=== PATIENT | female | born 1940 | race Two or more races ===

== ENCOUNTER 2025-06-19 05:00 | Inpatient (IN) | payer OTHER ==
[2025-06-18 08:53] LABS: BASO % 0.8 % (0.1-1.2); EOS # 0.12 (0.04-0.54); EOS % 1.1 % (0.7-7.0); LYMPH # 2.27 (1.18-3.74); LYMPH % 20.6 % (19.3-53.1); MEAN PLATELET VOLUME 10.10 fl (9.4-12.4); MONO # 0.67 (0.24-0.82); MONO % 6.1 % (4.7-12.5); NEUT # 7.84 (1.56-6.13); NEUT % 71.0 % (34.0-71.1); RED CELL DISTRIBUTION WIDTH 18.0 % (11.6-14.4)
[2025-06-18 08:59] LABS: URINE APPEARANCE Clear; URINE BILIRRUBIN Negative (NEGATIVE); URINE BLOOD Negative; URINE COLOR Yellow; URINE GLUCOSE Negative (NEGATIVE); URINE KETONE Trace (NEGATIVE); URINE LEUKOCYTE Large; URINE NITRATE Negative; URINE PROTEIN Negative (NEGATIVE); URINE UROBILINOGEN 0.2 E.U./dl
[2025-06-18 09:00] LABS: URINE BACTERIA 2015.9 uL (0.0-1933); URINE EPITHELIAL CELLS 24.2 uL (0.0-38.8); URINE RBC 40.3 uL (0.0-20.8); URINE WBC 24.6 uL (0.0-23.2)
[2025-06-18 09:10] LABS: COVID-19 AG NEGATIVE (NEGATIVE)
[2025-06-18 09:15] LABS: URINE CAST 1.02 uL (0.0-1.40)
[2025-06-18 09:18] LABS: INR 1.07
[2025-06-18 09:20] LABS: ALT/SGPT 20.0 U/L (12-78); AST/SGOT 21.0 U/L (15-37); BILIRUBIN TOTAL 0.39 mg/dL (0.3-1.2); BUN CREA RATIO 21.0 (7.0-25.0); CREATININE SERUM 1.27 mg/dL (0.55-1.02); GFR 40.19; GLOBULINA 5.6 G/DL (2.4-3.5); GLUCOSE FASTING 120.0 mg/dL (65-100); OSMOLALITY SERUM 286.0 MOSM/KG (275-295)
[2025-06-18 10:44] VITALS: BP 124/74
[~2025-06-19] VITALS: Ht 160 cm; Wt 79.4 kg
[2025-06-19] MEDS ORDERED: CIPROFLOXACIN IN 5 % DEXTROSE 400 MG/200 ML PIGGYBAG IV ONE (07:30)
[2025-06-19] MEDS ORDERED: CHLORHEXIDINE GLUCONATE 120 ML BOTTLE TOP ONE (07:30)
[2025-06-19] MEDS ORDERED: 0.9 % SODIUM CHLORIDE 1,000 ML IV SCH (11:00)
[2025-06-19] MEDS ORDERED: MORPHINE SULFATE 4 MG/ML VIAL IV PRN (11:00)
[2025-06-19] MEDS ORDERED: ONDANSETRON HCL 2 MG/ML VIAL IV PRN (11:00)
[2025-06-19 19:14] VITALS: BP 111/50; O2SAT 91
[2025-06-19] MEDS ORDERED: CIPROFLOXACIN IN 5 % DEXTROSE 400 MG/200 ML PIGGYBAG IV SCH (21:00)
[2025-06-19] MEDS ORDERED: FAMOTIDINE/PF 20 MG/10 ML SYRINGE IV PUSH SCH (21:00)
[2025-06-20 01:32] VITALS: BP 104/65; O2SAT 98
[2025-06-20 08:00] VITALS: BP 109/63; O2SAT 95
[2025-06-20] MEDS ORDERED: ENOXAPARIN SODIUM 40 MG/0.4 ML SYRINGE SUBCUTANEO SCH (17:00)
== END 2025-06-20 16:29 | disposition home or self-care (01) | DRG 583 ==
LOC: CIR.AMB 05:00 → SURH 11:27 → O/R 11:27 → SURH 12:20 → CIR.AMB 15:30 → SURH 06-20 16:29
PROVIDERS: ADMIT Surgery; ATTEND Surgery
PROC: 0HBU0ZZ Excision of Left Breast, Open Approach (ICD-10-PCS; principal; 2025-06-19 09:30)
DX: D05.12 Intraductal carcinoma in situ of left breast (principal)